=== PATIENT | male | born 1985 | race Caucasian/White ===

== ENCOUNTER 2019-06-06 19:45 | Emergency (ER) | payer OTHER ==
[2019-06-06 19:53] VITALS: BP 165/85; PULSE 94; RESP 16; TEMP 98.2
[2019-06-06] MEDS ORDERED: PROPARACAINE 0.5% OPHTH DROPS 15 ML BTL LEFT EYE STA (20:09)
--- NOTE | 2019-06-06 20:41 | ED ---
Eye Problem HPI - General Chief complaint: Eye Problems Stated complaint: FB Eye Time Seen by Provider: 06/06/19 20:04 Source: patient Mode of arrival: ambulatory Limitations: no limitations - History of Present Illness Initial comments: Patient is a 34-year-old male presenting to the emergency Department with complaints of irritation to bilateral eyes for the past few days. Patient states the irritation started in the right side. He believes he had some dust and there and his symptoms have just been progressing. Patient has been having clear discharge as well as redness and irritation feeling. He did wake up this morning with crusting over his eye. Patient states yesterday his left eye started becoming red and irritated as well. SkinI pain just irritation. He denies blurry vision headaches. He does not work contacts. He does work around a lot of dust and debris. He has no other complaints at this time. On arrival to ER, his vital signs are stable. - Related Data Previous Rx's Medication Instructions Recorded ALPRAZolam [Xanax] 0.25 mg PO DAILY PRN #5 tab 03/04/16 Erythromycin Ophth Oint [Romycin 1 applic BOTH EYES QID 5 Days #1 06/06/19 Ophth Oint] tube Allergies Allergy/AdvReac Type Severity Reaction Status Date / Time codeine Allergy Rash/Hives Verified 06/06/19 19:50 Review of Systems ROS Statement: Those systems with pertinent positive or pertinent negative responses have been documented in the HPI. ROS Other: All systems not noted in ROS Statement are negative. Past Medical History Past Medical History: No Reported History History of Any Multi-Drug Resistant Organisms: None Reported Past Surgical History: No Surgical Hx Reported Past Psychological History: No Psychological Hx Reported Smoking Status: Current every day smoker Past Alcohol Use History: Occasional Past Drug Use History: None Reported General Exam - General Exam Comments Initial Comments: GENERAL: Well-appearing, well-nourished and in no acute distress. HEAD: Atraumatic, normocephalic. EYES: Pupils equal round and reactive to light, extraocular movements intact, sclera anicteric. Bilateral conjunctivae are injected. On fluorescein stain, there is a mild abrasion to the right thigh, lateral aspect. ENT: TMs normal, nares patent, oropharynx clear without exudates. Moist mucous membranes. NECK: Normal range of motion, supple without lymphadenopathy or JVD. LUNGS: Breath sounds clear to auscultation bilaterally and equal. No wheezes rales or rhonchi. HEART: Regular rate and rhythm without murmurs, rubs or gallops. ABDOMEN: Soft, nontender, normoactive bowel sounds. No guarding, no rebound. No masses appreciated. EXTREMITIES: Normal range of motion, no pitting or edema. No clubbing or cyanosis. SKIN: Warm, Dry, normal turgor, no rashes or lesions noted. Limitations: no limitations Course Vital Signs 06/06/19 19:49 Temperature 98.2 F Pulse Rate 94 Respiratory 16 Rate Blood Pressure 165/85 O2 Sat by Pulse 99 Oximetry Medical Decision Making - Medical Decision Making Patient is a 34-year-old male with bilateral eye irritation for a few days. On fluorescein stain exam, there is mild abrasion at the lateral aspect of right thigh. No other acute findings. Patient will be placed on erythromycin ointment and will use in both eyes for 5 days. Patient stable for discharge at this time. He will follow up with an eye doctor if symptoms persist after 2-3 days. He is in agreement with this plan of care. Return parameters were discussed with the patient he verbalizes understanding. Disposition Clinical Impression: Right corneal abrasion Disposition: HOME SELF-CARE Condition: Stable Instructions (If sedation given, give patient instructions): Corneal Abrasion (ED) Additional Instructions: Please return to the Emergency Department if symptoms worsen or any other concerns. Use antibiotic ointment as prescribed. Follow-up with eye doctor if symptoms persist. Prescriptions: Erythromycin Ophth Oint [Romycin Ophth Oint] 1 applic BOTH EYES QID 5 Days #1 tube Is patient prescribed a controlled substance at d/c from ED?: No Referrals: None,Stated [Primary Care Provider] - 1-2 days Brett Montoya MD [STAFF PHYSICIAN] - 1-2 days
== END 2019-06-06 20:47 | disposition home or self-care (01) ==
LOC: EC 19:45
DX: S05.01XA Injury of conjunctiva and corneal abrasion without foreign body, right eye, initial encounter (principal); H57.89 Other specified disorders of eye and adnexa; F17.200 Nicotine dependence, unspecified, uncomplicated; Z88.5 Allergy status to narcotic agent; X58.XXXA Exposure to other specified factors, initial encounter
CPT/HCPCS: 99283

== ENCOUNTER 2020-04-23 20:42 | Emergency (ER) | payer OTHER ==
[2020-04-23] MEDS: NALOXONE 0.4 MG/ML 10 ML VIAL IVP STA ×2 (20:45→22:45)
[2020-04-23] MEDS ORDERED: NALOXONE 0.4 MG/ML 1 ML VIAL IVP STA ×3 (20:45→22:29)
--- NOTE | 2020-04-23 20:53 | ED ---
General Adult HPI - General Stated complaint: Overdose Time Seen by Provider: 04/23/20 20:48 Source: RN notes reviewed, old records reviewed Limitations: altered mental status - History of Present Illness Initial comments: 35-year-old male presents unresponsive with pinpoint pupils. Patient not cyanotic, he has a depressed respirations he's taken immediately to resuscitation area, given 1 mg of Narcan and has become completely alert and oriented with normal respirations, not hypoxic. Patient denies drugs of abuse, denies opiate ingestion. - Related Data Previous Rx's Medication Instructions Recorded ALPRAZolam [Xanax] 0.25 mg PO DAILY PRN #5 tab 03/04/16 Erythromycin Ophth Oint [Romycin 1 applic BOTH EYES QID 5 Days #1 06/06/19 Ophth Oint] tube Naloxone HCl [Narcan] 4 mg NASAL ONCE PRN #1 unit 04/23/20 Allergies Allergy/AdvReac Type Severity Reaction Status Date / Time codeine Allergy Rash/Hives Verified 04/23/20 20:48 Review of Systems ROS Statement: Those systems with pertinent positive or pertinent negative responses have been documented in the HPI. ROS Other: All systems not noted in ROS Statement are negative. Past Medical History Past Medical History: No Reported History History of Any Multi-Drug Resistant Organisms: None Reported Past Surgical History: No Surgical Hx Reported Past Psychological History: No Psychological Hx Reported Past Alcohol Use History: Occasional Past Drug Use History: None Reported General Exam Limitations: altered mental status General appearance: obtunded Eye exam: Present: other (Pupils are 2 mm bilaterally) Respiratory exam: Present: other (Snoring respirations) Cardiovascular Exam: Present: regular rate, normal rhythm GI/Abdominal exam: Present: soft. Absent: distended, tenderness Extremities exam: Present: normal inspection, normal capillary refill. Absent: pedal edema Neurological exam: Present: other (Nonresponsive) Skin exam: Present: warm, dry. Absent: cyanosis Course Vital Signs 04/23/20 04/23/20 04/23/20 20:45 20:48 21:05 Temperature 98.4 F Pulse Rate 118 H 110 H Respiratory 10 L 16 18 Rate Blood Pressure 150/78 114/84 O2 Sat by Pulse 97 96 Oximetry 04/23/20 04/23/20 04/23/20 21:20 21:50 22:06 Temperature Pulse Rate 105 H 85 80 Respiratory 18 14 14 Rate Blood Pressure 120/102 125/74 116/72 O2 Sat by Pulse 91 L 91 L Oximetry 04/23/20 04/23/20 04/23/20 22:25 22:45 23:08 Temperature 97.4 F L Pulse Rate 77 76 Respiratory 14 12 16 Rate Blood Pressure 112/68 118/86 O2 Sat by Pulse 94 L Oximetry - Reevaluation(s) Reevaluation #1: 04/23/20 20:53 Patient completely reversed with 1 mg of Narcan, normal respirations, he is alert. Stable vitals. Reevaluation #2: 04/23/20 21:37 Patient admits to snorting heroin. Denies intentional overdose. Denies suicidal ideation. Medical Decision Making - Medical Decision Making 35-year-old male with opiate overdose requiring Narcan. Patient is observed in the emergency department. He has normal respirations, he remains alert and arousable. He is remorseful. He is accompanied by his was at bedside. He does request intranasal Narcan. This prescription will be provided. Disposition Clinical Impression: Poisoning by opiates and related narcotics, other, Drug overdose Disposition: HOME SELF-CARE Condition: Fair Instructions (If sedation given, give patient instructions): Adult Overdose (ED), Opioid Use Disorder (ED) Prescriptions: Naloxone HCl [Narcan] 4 mg NASAL ONCE PRN #1 unit PRN Reason: Opioid Reversal Is patient prescribed a controlled substance at d/c from ED?: No Referrals: None,Stated [Primary Care Provider] - 1-2 days Rufino Solares [STAFF PHYSICIAN] - 1-2 days Time of Disposition: 22:10
[2020-04-23 22:27] VITALS: TEMP 97.4
[2020-04-23] MEDS ORDERED: ACETAMINOPHEN TAB 500 MG TAB PO STA (22:49)
[2020-04-24 00:13] VITALS: BP 116/66; PULSE 89; RESP 18
== END 2020-04-24 00:13 | disposition home or self-care (01) ==
LOC: EC 20:42
DX: T40.601A Poisoning by unspecified narcotics, accidental (unintentional), initial encounter (principal); Z88.5 Allergy status to narcotic agent
CPT/HCPCS: 99284; 96374; J2310